=== PATIENT | female | born 1960 | race Caucasian/White ===

== ENCOUNTER 2022-09-06 09:32 | Emergency (ER) | payer OTHER, SELFPAY ==
[2022-09-06 09:33] VITALS: BP 141/93; PULSE 120; RESP 16; TEMP 36.3; O2SAT 100; BMI 20.5
--- NOTE | 2022-09-06 09:51 | EDS_ITS ---
HPI History of Present Illness Chief Complaint: Cellulitis Narrative Narrative: 62-year-old female who denies significant past medical history presents with redness and swelling of her right cheek and below her right eye that she has had for the last few days. She states that she recently returned home from [place], and was washing her face on Sunday, 2 days ago. She noticed a flake of skin, that she scratched on her right cheek. She noticed soreness afterwards, and thought that maybe a small pimple had developed. She squeezed it, and over the last 24 to 48 hours has noticed increasing redness to her right cheek. She awoke this morning with swelling under her right eye that she felt has worsened. She denies any fevers or chills but states she has a slight headache. She has no pain with movement of her right eye, no loss of vision, no neck pain or other symptoms. PFSH PFS Home Medications sulfamethoxazole 800 mg-trimethoprim 160 mg tablet (Bactrim DS) 1 tab PO BID #20 tabs 09/06/22 [Rx Last Taken Unknown] Allergy/AdvReac Type Severity Reaction Status Date / Time No Known Allergies Allergy Verified 09/06/22 09:36 Social History Smoking Status: Never smoker ROS ROS ED ROS Narrative Constitutional: No fever, no chills. HEENT: No sore throat. No neck pain. No loss of vision. No rhinorrhea. Redness to right cheek, swelling below right eye. Cardiovascular: No chest pain. No palpitations. No pedal edema. Respiratory: No cough, no shortness of breath. Abdominal: No abdominal pain. No nausea. No vomiting. Genitourinary: No dysuria. No hematuria. Musculoskeletal: No myalgias. No arthralgias. Neurologic: Positive headache. No dizziness. No lightheadedness. Skin: No rash. No change in color. Psychiatric: No depression. No anxiety. EXAM Physical Exam Narrative Exam Narrative: Afebrile. Vital signs noted. Nontoxic-appearing. No acute distress. HEENT: Normocephalic. Atraumatic. PERRL, EOMI. No entrapment. No pain with movement of right eye. Positive edema right lower eyelid. Break in skin on right cheek with surrounding erythema, mild induration, no fluctuance. Neck soft and supple. No point tenderness or step off. Cardiovascular: Regular rate and rhythm. No murmurs, rubs, or gallops appreciated. Respiratory: No tachypnea. Lungs clear to auscultation bilaterally. Gastrointestinal: Abdomen soft, nontender, with normoactive bowel sounds. No rebound or guarding. Neurological: Awake. Alert. Nonfocal, nonlateralizing. Skin: No rash. Normal color. Positive erythema right cheek no pallor. Musculoskeletal: No pedal edema. Full range of motion extremities. Const Vital Signs: 09/06/22 09:33 Temperature 97.4 F L Temperature Source Temporal Pulse Rate 120 H Respiratory Rate 16 Blood Pressure 141/93 H Blood Pressure Mean 109 Pulse Ox 100 Oxygen Delivery Method Room Air MDM MDM MDM Narrative Medical decision making narrative: I do feel that the patient has more of a facial cellulitis than a drainable abscess of her right cheek. I do feel that her edema of her lower lid is reactionary. I do not feel that she requires septic work-up as she is afebrile here. Initially, she had a tachycardia, but she was nervous that she needed IV antibiotics. I feel that she merits outpatient trial of antibiotics prior to obtaining blood work. I do not feel that CT of the face is indicated. I do not think that she has a septal cellulitis that goes deeper and requires imaging or admission. Patient will apply warm compresses to the area and remain upright. She was written a prescription for Bactrim DS to take twice a day for the next 10 days. She will follow-up with a primary care provider. I feel she can be discharged safely home with follow-up. Return instructions to the emergency department were reviewed. Patient is comfortable with discharge. Disposition is discharged home in stable condition. Discharge Plan Triage Chief Complaint: Cellulitis ED Provider: Darnell Long Dx/Rx/DC Orders Clinical Impression: Facial cellulitis, Right facial swelling Instructions: ED Cellulitis, Facial Prescriptions: New sulfamethoxazole-trimethoprim [Bactrim DS] 800-160 mg tablet 1 tab PO BID Qty: 20 0RF Referrals: Colette Parra DO [[facility]] - 3-5 Days if not improving Activity Restrictions/Additional Instructions: Return to the urgency department with increased facial swelling, redness, fever, new or worsening symptoms. Take all of your antibiotics as directed. Disposition Disposition: Home, Self Care
== END 2022-09-06 10:03 | disposition home or self-care (01) ==
LOC: ED 10:02
PROVIDERS: Emergency Provider Emergency Medicine; PCP Family Medicine; Visit Provider Emergency Medicine
DX: L03.211 Cellulitis of face (principal); R22.0 Localized swelling, mass and lump, head
CPT/HCPCS: 99283